=== PATIENT | male | born 1950 | race Caucasian/White ===

== ENCOUNTER 2024-02-10 18:57 | Observation (INO) | payer MEDICARE, BC ==
--- NOTE | 2024-02-10 19:01 | ERPHSYRPT ---
- History of Present Illness Time Seen by Provider: 02/10/24 19:01 Source: patient, EMS Exam Limitations: no limitations Physician History: This is a thin 73-year-old white male patient of Dr. Burrell who was brought into the emergency department by the paramedics because of shortness of breath, hypoxia of 88% on room air, and back pain. Patient states that today he just could not get his breath. He did take 2 Tylenol tablets as well as a "dope pill" at 1700 prior to arrival. Patient does not wear oxygen and does not take steroids. However, he is still having 5 out of 10 back pain. Patient has 4 L of oxygen via nasal cannula placed on him and his oxygen saturation levels on arrival is 97 to 98%. He does not have chest pain he denies abdominal pain. Patient received DuoNeb nebulizer treatment en route by the paramedics. He also has had a productive cough of yellowish-green sputum. Timing/Duration: today Activities at Onset: activity Severity of Dyspnea-Max: moderate Severity of Dyspnea-Current: mild (To moderate) Possible Cause: occasional episodes Modifying Factors: Improves With: activity, albuterol nebulizer (Improved), coughing, oxygen (Improved) Associated Symptoms: anxiety, cough, wheezing, productive cough (Yellowish-green sputum), No chest pain/discomfort Allergies/Adverse Reactions: No Known Drug Allergies Allergy (Unverified 02/10/24 19:16) Home Medications: Albuterol Sulfate [Albuterol Sulfate Hfa] 2 puffs IH Q8H PRN PRN 02/10/24 [History] Apixaban [Eliquis] 5 mg PO BID 02/10/24 [History] Budesonide/Formoterol Fumarate [Budesonide-Formoterol 160-4.5] 2 puffs IH BID 02/10/24 [History] Cimetidine [Acid Ambulance Assistant] 400 mg PO DAILY 02/10/24 [History] Methotrexate Sodium 2.5 mg [Trexall 2.5 mg] 2.5 mg PO DAILY 02/10/24 [History] Prednisone 10 mg [Deltasone 10 mg] 10 mg PO DAILY 02/10/24 [History] Prednisone 5 mg [Deltasone 5 mg] 5 mg PO DAILY 02/10/24 [History] Rosuvastatin Calcium 40 mg PO DAILY 02/10/24 [History] Spironolactone [Aldactone] 25 mg PO DAILY 02/10/24 [History] Travel Risk - International Travel Have you traveled outside of the country in past 3 weeks: No - Emerging Infectious Disease Are you exhibiting symptoms associated with any current EIDs: No Symptoms: Cough: New Onset - Review of Systems Constitutional: No Symptoms Eyes: No Symptoms Ears, Nose, & Throat: No Symptoms Respiratory: Cough, Dyspnea on Exertion ([place]) Cardiac: No Symptoms Abdominal/Gastrointestinal: No Symptoms Genitourinary Symptoms: No Symptoms Musculoskeletal: Back Pain (Acute exacerbation of chronic back pain.), No Fall, No Injury Skin: No Symptoms Neurological: No Symptoms Psychological: No Symptoms Endocrine: No Symptoms Hematologic/Lymphatic: No Symptoms Immunological/Allergic: No Symptoms All Other Systems: Reviewed and Negative - Past Medical History Pertinent Past Medical History: Yes - Past Surgical History Past Surgical History: Yes - Nursing Vital Signs Nursing Vital Signs: Initial Vital Signs Blood Pressure 126/87 02/10/24 19:00 O2 Sat by Pulse Oximetry 97 02/10/24 19:00 Pain Scale Pain Intensity 3 - Physical Exam General Appearance: no apparent distress, alert, anxiety, thin Eye Exam: PERRL/EOMI, eyes nml inspection Ears, Nose, Throat Exam: hearing grossly normal, normal ENT inspection, normal pharynx Neck Exam: normal inspection, non-tender, supple, full range of motion Respiratory Exam: airway intact, rhonchi (Mild bilateral), wheezing (Mild bilateral expiratory), No chest tenderness, No respiratory distress Cardiovascular/Chest Exam: normal heart sounds, regular rate/rhythm Abdominal/Gastrointestinal Exam: soft, normal bowel sounds, No tenderness Rectal Exam: not done Extremity Exam: non-tender, normal range of motion, normal inspection Neurologic Exam: alert, oriented x 3, cooperative, rate setter II-XII nml as tested, nml cerebellar function, nml station & gait, sensation nml Skin Exam: normal color, warm, dry Lymphatic Exam: No adenopathy SpO2 Interpretation: normal O2 Delivery: Room Air - Course Nursing assessment & vital signs reviewed: Yes EKG Interpreted by Me: RATE ([id number]), A-fib, NORMAL AXIS, NORMAL QRS, Other (Ventricular bigeminy. No obvious acute ischemic changes on today's twelve-lead EKG. There are no comparison twelve-lead EKGs.) Ordered Tests: Active Orders 24 hr Category Date Time Status EKG-ER Only STAT Care 02/10/24 19:39 Active IV Insertion STAT Care 02/10/24 19:39 Active Pulse Oximetry (ED) STAT Care 02/10/24 19:39 Active CHEST 1 VIEW (PORTABLE) Stat Exams 02/10/24 19:40 Taken BLOOD CULTURE Stat Lab 02/10/24 20:08 Received CBC W DIFF Stat Lab 02/10/24 19:00 Completed CMP Stat Lab 02/10/24 19:00 Completed CULTURE,SPUTUM Stat Lab 02/10/24 19:47 Ordered D-DIMER QUANTITATIVE Stat Lab 02/10/24 19:00 Completed Lactic Acid Stat Lab 02/10/24 19:55 Completed Lactic Acid Stat Lab 02/10/24 22:10 Received MAGNESIUM Stat Lab 02/10/24 19:00 Completed NT PRO BNPII Stat Lab 02/10/24 19:00 Completed TROPONIN Q4H Lab 02/10/24 19:00 Completed TROPONIN Q4H Lab 02/10/24 23:45 Ordered TROPONIN Q4H Lab 02/11/24 03:45 Ordered Medication Summary Generic Name Dose Route Start Last Admin Trade Name Freq PRN Reason Stop Dose Admin Ceftriaxone Sodium 1 gm in 100 mls @ 200 mls/hr 02/10/24 23:35 Rocephin 1 Gm / 100 Ml Nacl IV 02/11/24 00:04 STAT ONE Discontinued Medications Generic Name Dose Route Start Last Admin Trade Name Freq PRN Reason Stop Dose Admin Methylprednisolone Sodium 0 mg 02/10/24 19:41 02/10/24 19:59 Succinate 125 mg/ Sterile IV 02/10/24 19:42 125 mg Water 2 ml STAT ONE Administration Furosemide 40 mg 02/10/24 20:34 02/10/24 21:16 Furosemide 40 Mg/4 Ml Vial IV 02/10/24 20:35 40 mg STAT ONE Administration Furosemide Confirm 02/10/24 21:14 Furosemide 40 Mg/4 Ml Vial Administered 02/10/24 21:15 Dose 40 mg .ROUTE .STK-MED ONE Methylprednisolone Sodium Succinate Confirm 02/10/24 19:55 Methylprednis Sod Succ 125 Mg/2 Ml Vial Administered 02/10/24 19:56 Dose 125 mg .ROUTE .STK-MED ONE Morphine Sulfate 2 mg 02/10/24 19:41 02/10/24 19:58 Morphine Sulfate 2 Mg/Ml Inj IV 02/10/24 19:42 2 mg STAT ONE Administration Morphine Sulfate Confirm 02/10/24 19:55 Morphine Sulfate 2 Mg/Ml Inj Administered 02/10/24 19:56 Dose 2 mg .ROUTE .STK-MED ONE Morphine Sulfate 2 mg 02/10/24 21:52 02/10/24 22:02 Morphine Sulfate 2 Mg/Ml Inj IV 02/10/24 21:53 2 mg STAT ONE Administration Morphine Sulfate Confirm 02/10/24 22:01 Morphine Sulfate 2 Mg/Ml Inj Administered 02/10/24 22:02 Dose 2 mg .ROUTE .STK-MED ONE Ondansetron HCl 4 mg 02/10/24 19:41 02/10/24 19:58 Ondansetron Hcl 4 Mg/2 Ml Vial IV 02/10/24 19:42 4 mg STAT ONE Administration Ondansetron HCl Confirm 02/10/24 19:55 Ondansetron Hcl 4 Mg/2 Ml Vial Administered 02/10/24 19:56 Dose 4 mg .ROUTE .STK-MED ONE Sterile Water Confirm 02/10/24 19:55 Water For Injection,Sterile 10 Ml Vial Administered 02/10/24 19:56 Dose 10 ml IJ .STK-MED ONE Lab/Rad Data: Laboratory Result Diagrams 02/10/24 19:00 02/10/24 19:00 Laboratory Results 02/10/24 02/10/24 02/10/24 Range/Units 20:08 19:55 19:00 WBC (4.0-10.5) x10^3/uL RBC (4.1-5.6) x10^6/uL Hgb (12.5-18.0) g/dL Hct (42-50) % MCV (78-100) fL MCH (26-32) pg MCHC (32-36) g/dL RDW (11.5-14.0) % Plt Count (150-450) x10^3/uL MPV (7.5-11.0) fL Gran % (36.0-66.0) % Immature Gran % (Auto) (0.00-0.4) % Nucleat RBC Rel Count (0.00-0.1) % Eos # (Auto) (0-0.5) x10^3/uL Immature Gran # (Auto) (0.00-0.03) x10^3u/L Absolute Lymphs (auto) (1.0-4.6) x10^3/uL Absolute Monos (auto) (0.0-1.3) x10^3/uL Absolute Nucleated RBC (0.00-0.01) x10^3u/L Lymphocytes % (24.0-44.0) % Monocytes % (0.0-12.0) % Eosinophils % (0.00-5.0) % Basophils % (0.0-0.4) % Absolute Granulocytes (1.4-6.9) x10^3/uL Basophils # (0-0.4) x10^3/uL D-Dimer (0.0-0.50) mg/L Sodium (135-145) mmol/L Potassium (3.5-5.1) mmol/L Chloride (98-107) mmol/L Carbon Dioxide (22-30) mmol/L Anion Gap (5-15) MEQ/L BUN (9-20) mg/dL Creatinine (0.66-1.25) mg/dL Estimated GFR ML/MIN Glucose (74-106) mg/dL Lactic Acid 2.1 H (0.4-2.0) Calcium (8.4-10.2) mg/dL Magnesium (1.6-2.3) mg/dL Total Bilirubin (0.2-1.3) mg/dL AST (17-59) U/L ALT (0-50) U/L Alkaline Phosphatase (38-126) U/L Troponin I < 0.012 (0.000-0.034) ng/mL NT-Pro-B Natriuret Pep (<300) pg/mL Serum Total Protein (6.3-8.2) g/dL Albumin (3.5-5.0) g/dL Influenza Type A Ag NEGATIVE (NEGATIVE) Influenza Type B Ag NEGATIVE (NEGATIVE) RSV (PCR) NEGATIVE (NEGATIVE) SARS-CoV-2 (PCR) NEGATIVE (NEGATIVE) Slides for Path Review 02/10/24 02/10/24 02/10/24 Range/Units 19:00 19:00 19:00 WBC 13.5 H (4.0-10.5) x10^3/uL RBC 4.17 (4.1-5.6) x10^6/uL Hgb 11.5 L (12.5-18.0) g/dL Hct 38.3 L (42-50) % MCV 91.8 (78-100) fL MCH 27.6 (26-32) pg MCHC 30.0 L (32-36) g/dL RDW 18.8 H (11.5-14.0) % Plt Count 327 (150-450) x10^3/uL MPV 9.2 (7.5-11.0) fL Gran % 90.8 H (36.0-66.0) % Immature Gran % (Auto) 0.7 H (0.00-0.4) % Nucleat RBC Rel Count 0.0 (0.00-0.1) % Eos # (Auto) 0.01 (0-0.5) x10^3/uL Immature Gran # (Auto) 0.09 H (0.00-0.03) x10^3u/L Absolute Lymphs (auto) 0.39 L (1.0-4.6) x10^3/uL Absolute Monos (auto) 0.70 (0.0-1.3) x10^3/uL Absolute Nucleated RBC 0.00 (0.00-0.01) x10^3u/L Lymphocytes % 2.9 L (24.0-44.0) % Monocytes % 5.2 (0.0-12.0) % Eosinophils % 0.1 (0.00-5.0) % Basophils % 0.3 (0.0-0.4) % Absolute Granulocytes 12.27 H (1.4-6.9) x10^3/uL Basophils # 0.04 (0-0.4) x10^3/uL D-Dimer 0.64 H* (0.0-0.50) mg/L Sodium 135 (135-145) mmol/L Potassium 5.3 H (3.5-5.1) mmol/L Chloride 98 (98-107) mmol/L Carbon Dioxide 27 (22-30) mmol/L Anion Gap 15.0 (5-15) MEQ/L BUN 25 H (9-20) mg/dL Creatinine 0.95 (0.66-1.25) mg/dL Estimated GFR 83.5 ML/MIN Glucose 112 H (74-106) mg/dL Lactic Acid (0.4-2.0) Calcium 9.9 (8.4-10.2) mg/dL Magnesium 2.0 (1.6-2.3) mg/dL Total Bilirubin 0.50 (0.2-1.3) mg/dL AST 30 (17-59) U/L ALT 22 (0-50) U/L Alkaline Phosphatase 88 (38-126) U/L Troponin I (0.000-0.034) ng/mL NT-Pro-B Natriuret Pep 2530 (<300) pg/mL Serum Total Protein 7.5 (6.3-8.2) g/dL Albumin 3.9 (3.5-5.0) g/dL Influenza Type A Ag (NEGATIVE) Influenza Type B Ag (NEGATIVE) RSV (PCR) (NEGATIVE) SARS-CoV-2 (PCR) (NEGATIVE) Slides for Path Review YES - Progress Progress: improved, re-examined Air Movement: fair Progress Note: 02/10/24 19:50 This patient's medical issue is 1 of at least moderate complexity. The level complexity and the workup performed is based on review of the patient's past medical history, review of the patient's medication list, review of patient drug allergy list, history present illness and physical findings on examination. The workup in this patient includes placement of intravenous line, evaluation by respiratory therapy, infusion of Solu-Medrol, chest x-ray, D-dimer level, troponin level, BNP level, twelve-lead EKG. We will also order viral swabs 02/10/24 20:54 I interpreted the patient's laboratory data that is returned thus far. Patient has an elevated BNP level. His troponin level is within normal limits. I am awaiting the D-dimer level. The chest x-ray was interpreted by me. The patient has left pleural effusion. There is also evidence of bibasilar fluid versus atelectasis versus infiltrate. 02/10/24 23:[address] Guillen, the telehospitalist on-call. I reviewed the patient history, presenting complaint, physical findings on examination and the workup results including chest x-ray, twelve-lead EKG and laboratory data results. He agrees with placing this patient in observation. The patient will require intravenous Rocephin and intravenous azithromycin, Solu-Medrol dosing and diuresis with Lasix. Patient is refusing the CT scan of the chest. He will sign refusal of care form. Dr. Guillen accepts the patient for placement in the hospital. Blood Culture(s) Obtained: Yes Antibiotics given: Yes Counseled pt/family regarding: lab results, diagnosis, rad results Medical Desision Making - Diagnostic Testing Diagnostic test were ordered, analyzed, and reviewed by me: Yes Radiological Interpretation: Interpreted by me - Risk of complications The pt has a high risk of morbidity or mortality based on: Decision regarding hospitilization or escalation of hosp level of care - Departure Departure Disposition: Observation Clinical Impression: Upper respiratory infection, CHF exacerbation, COPD exacerbation, Hypoxia Condition: Fair Critical Care Time: Yes Critical Care Time(excluding separately billable procedures): Critical 30-74 mins (40 minutes) Referrals: AJ BURRELL [Primary Care Provider] - Follow up/PCP as directed Instructions: Heart Failure, Chronic Obstructive Pulmonary Disease
[2024-02-10 19:47] LABS: Absolute Neutrophil Ct (ANC) 12.27 x10^3/uL (1.4-6.9); BASOPHIL % 0.3 % (0.0-0.4); Basophil (Absolute #) 0.04 x10^3/uL (0-0.4); Eosinophil % 0.1 % (0.00-5.0); Eosinophil (Absolute #) 0.01 x10^3/uL (0-0.5); Hematocrit 38.3 % (42-50); Hemoglobin 11.5 g/dL (12.5-18.0); IMMATURE GRAN # 0.09 x10^3u/L (0.00-0.03); IMMATURE GRAN % 0.7 % (0.00-0.4); Lymphocyte (Absolute #) 0.39 x10^3/uL (1.0-4.6); Lymphocytes % 2.9 % (24.0-44.0); Mean Cell Volume 91.8 fL (78-100); Mean Corpuscular Hemoglobin 27.6 pg (26-32); Mean Platelet Volume 9.2 fL (7.5-11.0); Monocytes % 5.2 % (0.0-12.0); Neutrophil % 90.8 % (36.0-66.0); Platelet Count 327 x10^3/uL (150-450); Red Blood Count 4.17 x10^6/uL (4.1-5.6); Red Cell Distribution Width 18.8 % (11.5-14.0); White Blood Count 13.5 x10^3/uL (4.0-10.5)
[2024-02-10 19:55] LABS: ALBUMIN 3.9 g/dL (3.5-5.0); BILIRUBIN,TOTAL 0.5 mg/dL (0.2-1.3); Calcium 9.9 mg/dL (8.4-10.2); Creatinine 1 0.95 mg/dL (0.66-1.25); EST GLOMERULAR FILTRATION RATE 83.5 ML/MIN; Potassium 5.3 mmol/L (3.5-5.1); Total Protein 7.5 g/dL (6.3-8.2)
[2024-02-10] MEDS ORDERED: solu-MEDROL ONE (19:55)
[2024-02-10] MEDS ORDERED: Zofran 4 MG/2 ML VIAL ONE (19:55)
[2024-02-10] MEDS ORDERED: Sterile H2O 10 ml IJ ONE (19:55)
[2024-02-10] MEDS ORDERED: MORPHINE SULFATE 2 MG INJ ONE ×2 (19:55→22:01)
[2024-02-10] MEDS: MORPHINE SULFATE 2 MG INJ IV ONE ×2 (19:58→22:02)
[2024-02-10] MEDS: Zofran 4 MG/2 ML VIAL IV ONE (19:58)
[2024-02-10] MEDS: solu-MEDROL 125 MG, Sterile H2O 10 ml 2 ML IV ONE (19:59)
[2024-02-10 20:50] LABS: Slide Review 1 YES
[2024-02-10 21:01] LABS: INFLUENZA A NEGATIVE (NEGATIVE); INFLUENZA B NEGATIVE (NEGATIVE); RESPIRATORY SYNCTIAL VIRUS NEGATIVE (NEGATIVE); SARS-CoV-2 Xpert Express NEGATIVE (NEGATIVE)
[2024-02-10] MEDS ORDERED: Lasix 40 MG/4 ML ONE (21:14)
[2024-02-10] MEDS: Lasix 40 MG/4 ML IV ONE (21:16)
[2024-02-10] MEDS ORDERED: ROCEPHIN 1 GM / 100 ML NaCl 1 GM/100 ML IVPB IV ONE (23:41)
[2024-02-10] MEDS: ROCEPHIN 1 GM / 100 ML NaCl 1 GM/100 ML IVPB IV ONE (23:43)
[2024-02-10] MEDS ORDERED: Zofran 4 MG/2 ML VIAL IV PRN (23:47)
[2024-02-11] MEDS ORDERED: VENTOLIN COMMON CANISTER IH PRN (00:04)
[2024-02-11] MEDS ORDERED: TYLENOL 325 MG PO PRN (00:12)
--- NOTE | 2024-02-11 00:19 | PCM.HP ---
History of Present Illness - Chief Complaint Chief Complaint: SOB History of Present Illness: is a 73 year old male with hx of GERD, AFib, CHF, COPD here with c/o SOB and productive cough started today. He is not normally on O2, and his O2 sat on RA was 88%, placed on 4Ls NC O2, and O2 sat has since improved. Cough is productive with yellow sputum. Denies fever, chills, chest pain, nausea, vomiting, diarrhea. In ER, CXR shows effusions. BNP 2300. Concern for both COPD exacerbation, PNA and CHF. He is on Eliquis already for AFib. DDimer elevated but pt refused to go to CT due to his back pain. His other complaint is back pain, but this is a chronic issue. I saw via him telemedicine. He is resting on NC O2, looks comfortable not, not septic on my exam - Review of Systems Constitutional: No Symptoms Eyes: No Symptoms Ears, Nose, & Throat: No Symptoms Respiratory: Cough, Short Of Breath Cardiac: No Symptoms Abdominal/Gastrointestinal: No Symptoms Genitourinary Symptoms: No Symptoms Musculoskeletal: Back Pain Skin: No Symptoms Neurological: No Symptoms Psychological: No Symptoms Endocrine: No Symptoms Hematologic/Lymphatic: No Symptoms Immunological/Allergic: No Symptoms Medications & Allergies Home Medications: Home Medication List Albuterol Sulfate [Albuterol Sulfate Hfa] 2 puffs IH Q8H PRN PRN 02/10/24 [History Confirmed 02/11/24] Apixaban [Eliquis] 5 mg PO BID 02/10/24 [History Confirmed 02/10/24] Budesonide/Formoterol Fumarate [Budesonide-Formoterol 160-4.5] 2 puffs IH BID 02/10/24 [History Confirmed 02/10/24] Cimetidine [Acid Translator Interpreter] 400 mg PO DAILY 02/10/24 [History Confirmed 02/10/24] Methotrexate Sodium 2.5 mg [Trexall 2.5 mg] 2.5 mg PO DAILY 02/10/24 [History Confirmed 02/11/24] Rosuvastatin Calcium 40 mg PO DAILY 02/10/24 [History Confirmed 02/10/24] Spironolactone [Aldactone] 25 mg PO DAILY 02/10/24 [History Confirmed 02/10/24] Allergies/Adverse Reactions: Allergies Allergy/AdvReac Type Severity Reaction Status Date / Time No Known Drug Allergies Allergy Unverified 02/10/24 19:16 - Past Medical History Past Medical History: Yes Neurological History: No Pertinent History Cardiac History: Arrhythmia, High Cholesterol Respiratory History: COPD - Past Surgical History Past Surgical History: Yes Neuro Surgical History: No Pertinent History Cardiac History: Cardiac Catheterization, Cardiac Stent GI Surgical History: No Pertinent History Genitourinary Surgical Hx: No Pertinent History Musculskeletal Surgical Hx: No Pertinent History Male Surgical History: No Pertinent History - Social History Smoking Status: Former smoker Exposure to second hand smoke: No Alcohol: None Drug Use: none - Physical Exam Vital Signs: Vital Signs - 24 hr Pulse Resp BP Pulse Ox 02/11/24 00:00 109 H 20 113/84 98 02/10/24 23:30 98 H 24 113/89 98 02/10/24 23:20 105 H 22 112/81 97 02/10/24 22:30 142 H 23 108/85 97 02/10/24 22:00 104 H 23 132/100 96 02/10/24 21:30 104 H 22 130/100 97 02/10/24 21:00 99 H 22 126/103 97 02/10/24 20:30 105 H 23 138/92 02/10/24 20:00 113 H 22 134/99 97 02/10/24 19:39 97 02/10/24 19:30 102 H 22 118/95 97 02/10/24 19:21 18 97 02/10/24 19:00 126/87 97 General Appearance: mild distress, alert Neurologic Exam: alert, oriented x 3, cooperative, normal mood/affect Eye Exam: PERRL/EOMI Ears, Nose, Throat Exam: normal ENT inspection, moist mucous membranes Neck Exam: normal inspection, supple, full range of motion Respiratory Exam: diminished breath sounds Cardiovascular Exam: normal heart sounds, irregular Gastrointestinal/Abdomen Exam: soft Rectal Exam: deferred Back Exam: normal inspection Extremity Exam: normal inspection Skin Exam: normal color Results - Labs Lab/Micro Results: Lab Results-Last 24 Hours 02/10/24 02/10/24 02/10/24 Range/Units 19:00 19:00 19:00 WBC 13.5 H (4.0-10.5) x10^3/uL RBC 4.17 (4.1-5.6) x10^6/uL Hgb 11.5 L (12.5-18.0) g/dL Hct 38.3 L (42-50) % MCV 91.8 (78-100) fL MCH 27.6 (26-32) pg MCHC 30.0 L (32-36) g/dL RDW 18.8 H (11.5-14.0) % Plt Count 327 (150-450) x10^3/uL MPV 9.2 (7.5-11.0) fL Gran % 90.8 H (36.0-66.0) % Immature Gran % (Auto) 0.7 H (0.00-0.4) % Nucleat RBC Rel Count 0.0 (0.00-0.1) % Eos # (Auto) 0.01 (0-0.5) x10^3/uL Immature Gran # (Auto) 0.09 H (0.00-0.03) x10^3u/L Absolute Lymphs (auto) 0.39 L (1.0-4.6) x10^3/uL Absolute Monos (auto) 0.70 (0.0-1.3) x10^3/uL Absolute Nucleated RBC 0.00 (0.00-0.01) x10^3u/L Lymphocytes % 2.9 L (24.0-44.0) % Monocytes % 5.2 (0.0-12.0) % Eosinophils % 0.1 (0.00-5.0) % Basophils % 0.3 (0.0-0.4) % Absolute Granulocytes 12.27 H (1.4-6.9) x10^3/uL Basophils # 0.04 (0-0.4) x10^3/uL D-Dimer 0.64 H* (0.0-0.50) mg/L Sodium 135 (135-145) mmol/L Potassium 5.3 H (3.5-5.1) mmol/L Chloride 98 (98-107) mmol/L Carbon Dioxide 27 (22-30) mmol/L Anion Gap 15.0 (5-15) MEQ/L BUN 25 H (9-20) mg/dL Creatinine 0.95 (0.66-1.25) mg/dL Estimated GFR 83.5 ML/MIN Glucose 112 H (74-106) mg/dL Lactic Acid (0.4-2.0) Calcium 9.9 (8.4-10.2) mg/dL Magnesium 2.0 (1.6-2.3) mg/dL Total Bilirubin 0.50 (0.2-1.3) mg/dL AST 30 (17-59) U/L ALT 22 (0-50) U/L Alkaline Phosphatase 88 (38-126) U/L Troponin I (0.000-0.034) ng/mL NT-Pro-B Natriuret Pep 2530 (<300) pg/mL Serum Total Protein 7.5 (6.3-8.2) g/dL Albumin 3.9 (3.5-5.0) g/dL Influenza Type A Ag (NEGATIVE) Influenza Type B Ag (NEGATIVE) RSV (PCR) (NEGATIVE) SARS-CoV-2 (PCR) (NEGATIVE) Slides for Path Review YES 02/10/24 02/10/24 02/10/24 Range/Units 19:00 19:55 20:08 WBC (4.0-10.5) x10^3/uL RBC (4.1-5.6) x10^6/uL Hgb (12.5-18.0) g/dL Hct (42-50) % MCV (78-100) fL MCH (26-32) pg MCHC (32-36) g/dL RDW (11.5-14.0) % Plt Count (150-450) x10^3/uL MPV (7.5-11.0) fL Gran % (36.0-66.0) % Immature Gran % (Auto) (0.00-0.4) % Nucleat RBC Rel Count (0.00-0.1) % Eos # (Auto) (0-0.5) x10^3/uL Immature Gran # (Auto) (0.00-0.03) x10^3u/L Absolute Lymphs (auto) (1.0-4.6) x10^3/uL Absolute Monos (auto) (0.0-1.3) x10^3/uL Absolute Nucleated RBC (0.00-0.01) x10^3u/L Lymphocytes % (24.0-44.0) % Monocytes % (0.0-12.0) % Eosinophils % (0.00-5.0) % Basophils % (0.0-0.4) % Absolute Granulocytes (1.4-6.9) x10^3/uL Basophils # (0-0.4) x10^3/uL D-Dimer (0.0-0.50) mg/L Sodium (135-145) mmol/L Potassium (3.5-5.1) mmol/L Chloride (98-107) mmol/L Carbon Dioxide (22-30) mmol/L Anion Gap (5-15) MEQ/L BUN (9-20) mg/dL Creatinine (0.66-1.25) mg/dL Estimated GFR ML/MIN Glucose (74-106) mg/dL Lactic Acid 2.1 H (0.4-2.0) Calcium (8.4-10.2) mg/dL Magnesium (1.6-2.3) mg/dL Total Bilirubin (0.2-1.3) mg/dL AST (17-59) U/L ALT (0-50) U/L Alkaline Phosphatase (38-126) U/L Troponin I < 0.012 (0.000-0.034) ng/mL NT-Pro-B Natriuret Pep (<300) pg/mL Serum Total Protein (6.3-8.2) g/dL Albumin (3.5-5.0) g/dL Influenza Type A Ag NEGATIVE (NEGATIVE) Influenza Type B Ag NEGATIVE (NEGATIVE) RSV (PCR) NEGATIVE (NEGATIVE) SARS-CoV-2 (PCR) NEGATIVE (NEGATIVE) Slides for Path Review - Radiology Impressions Radiology Exams & Impressions: Radiology Procedures Category Date Time Status CHEST 1 VIEW (PORTABLE) Stat Exams 02/10/24 19:40 Taken - Other Procedures and Tests Respiratory Therapy 02/11/24 00:05 Oxygen Nasal Cannula 2 lpm 02/11/24 00:12 EKG REPEAT IN AM Oxygen Nasal Cannula 2 lpm Respiratory Therapy Consult ONCE Assessment/Plan (1) Hypoxia Current Visit: Yes Status: Acute Assessment & Plan: Acute respiratory failure with hypoxia: On 4Ls NC O2. COPD and CHF exacerbation. Treating both, monitor O2 sat, wean off O2 when able. Code(s): R09.02 - HYPOXEMIA (2) COPD exacerbation Current Visit: Yes Status: Acute Assessment & Plan: Solu-medrol 80mg IV q8, rocephin/azithromycin, updrafts prn. D-Dimer elevated, but refused CTA. already on Eliquis. Sputum and blood cultures ordered He quit smoking Aug 2020 Code(s): J44.1 - CHRONIC OBSTRUCTIVE PULMONARY DISEASE W (ACUTE) EXACERBATION (3) CHF exacerbation Current Visit: Yes Status: Acute Assessment & Plan: Pleural effusion seen on CXR. BNP 2300. Lasix 20mg IV BID, and monitor BNP and clinical progress. Cr is normal. BUN 20s. Code(s): I50.9 - HEART FAILURE, UNSPECIFIED (4) Hyperkalemia Current Visit: Yes Status: Acute Assessment & Plan: K is mildly elevated at 5.3. Holding spironolactone. Lasix should help lower K. Repeat lab in AM Code(s): E87.5 - HYPERKALEMIA (5) Leukocytosis Current Visit: Yes Status: Acute Assessment & Plan: WBC 13.5. No fever. Productive cough. Treating with Rocephin/Azithromycin for possible CAP. Flu and covid negative Code(s): D72.829 - ELEVATED WHITE BLOOD CELL COUNT, UNSPECIFIED (6) Atrial fibrillation Current Visit: Yes Status: Acute Assessment & Plan: HR is < 120, he is on Eliquis Code(s): I48.91 - UNSPECIFIED ATRIAL FIBRILLATION Telemedicine Encounter - Telemedicine Encounter Telemedicine Encounter: The entirety of this encounter was performed via Telemedicine" Pt gave me verbal consent to have this telemedicine visit I believe he needs inpt admission, will likely be here at least 48 hrs. Eliquis for DVT prophylaxis as well. He is a FULL code
[2024-02-11] MEDS: ROCEPHIN 1 GM / 100 ML NaCl 1 GM/100 ML IVPB IV SCH ×3 (01:28→21:05)
[2024-02-11] MEDS: Lasix 40 MG/4 ML IV SCH (01:29)
[2024-02-11] MEDS: Sodium Chloride 0.9% 1000 ML 1,000 ML IV SCH (01:32)
[2024-02-11] MEDS: MORPHINE SULFATE 2 MG INJ IV PRN (03:52)
[2024-02-11] MEDS: VENTOLIN COMMON CANISTER IH SCH (05:07)
[2024-02-11] MEDS: Advair Hfa 115/21 Common canister IH SCH (05:08)
[2024-02-11 05:11] LABS: A-aADO2 56; ABG HEMOGLOBIN 11.5; ABG POTASSIUM 5.3 (3.5-5.1); ARTERIAL BLOOD GAS BASE EXCESS 2.7 (-2.0-2.0); ARTERIAL BLOOD GAS FIO2 28 %; ARTERIAL BLOOD GAS PCO2 35 mmHg (35-45); ARTERIAL BLOOD GAS PO2 100 mmHg (75-100); ARTERIAL BLOOD GAS pH 7.48 (7.35-7.45); CARBOXYHEMOGLOBIN 1.4 % THgb (0.0-6.9); HCO3- 26.1 (22-28); HGB O2 SAT 96.5 g/dF (94-100); Methhemoglobin 1.1 % (1.4-1.5); paO2 pAO1 0.64
[2024-02-11 05:39] LABS: Hematocrit 36.6 % (42-50); Hemoglobin 11.1 g/dL (12.5-18.0); Mean Cell Volume 90.6 fL (78-100); Mean Corpuscular Hemoglobin 27.5 pg (26-32); Mean Corpuscular Hgb Concent. 30.3 g/dL (32-36); Mean Platelet Volume 9.3 fL (7.5-11.0); Platelet Count 292 x10^3/uL (150-450); Red Blood Count 4.04 x10^6/uL (4.1-5.6); Red Cell Distribution Width 18.6 % (11.5-14.0)
[2024-02-11] MEDS ORDERED: solu-MEDROL ONE (05:49)
[2024-02-11] MEDS ORDERED: Sterile H2O 10 ml IJ ONE (05:49)
[2024-02-11] MEDS: solu-MEDROL 80 MG, Sterile H2O 10 ml 1 ML IV SCH (06:03)
[2024-02-11 06:24] LABS: ALBUMIN 3.7 g/dL (3.5-5.0); ANION GAP 18.8 MEQ/L (5-15); BILIRUBIN,TOTAL 0.4 mg/dL (0.2-1.3); Calcium 9.4 mg/dL (8.4-10.2); Creatinine 1 0.95 mg/dL (0.66-1.25); EST GLOMERULAR FILTRATION RATE 83.5 ML/MIN; Potassium 5.2 mmol/L (3.5-5.1); Total Protein 7.1 g/dL (6.3-8.2)
--- NOTE | 2024-02-11 08:25 | XRAY ---
Indication: Short of breath. Comparison: January 24, 2024 Portable chest demonstrates new mild bibasilar infiltrates/atelectasis and small left effusion. Remaining heart and upper lungs unremarkable.
[2024-02-11] MEDS ORDERED: CIMETIDINE 200 MG PO SCH (10:00)
[2024-02-11] MEDS ORDERED: NON-FORMULARY ITEM (Budesonide/Formoterol Fumarate [Budesonide-Formoterol 160-4.5] 10.2 GM IH SCH (10:00)
[2024-02-11] MEDS ORDERED: NON-FORMULARY ITEM (Rosuvastatin Calcium [Rosuvastatin Calcium] 40 MG Tablet) PO SCH (10:00)
[2024-02-11] MEDS ORDERED: Zithromax 500 MG/ 250 ML NaCl Premix 500 MG/250 ML IVPB IV SCH (10:00)
[2024-02-11] MEDS ORDERED: NON-FORMULARY ITEM (Apixaban [Eliquis] 5 MG Tablet) PO SCH (10:00)
[2024-02-11] MEDS: ELIQUIS 2.5 MG TABLET PO SCH (10:18)
[2024-02-11] MEDS: Lasix 20 MG/2 ML IV SCH (10:18)
[2024-02-11] MEDS: Pepcid 20 MG PO SCH (10:18)
[2024-02-11] MEDS: Lopressor 25MG Tab PO SCH (10:19)
[2024-02-11] MEDS: TYLENOL 325 MG PO PRN (10:27)
[2024-02-11] MEDS: Mucinex 600MG ER Tabs PO SCH (10:28)
--- NOTE | 2024-02-11 11:18 | PCM.NOTE ---
Mr. Dasilva is a 43 yo male with pmhx of GERD, AFib, CHF, COPD, and HLD admitted with CHF/COPD exacerbation and pneumonia. CXR chest demonstrates new mild bibasilar infiltrates/atelectasis and small left effusion. Current treatment with Soulmedrol 40mg IV Q8H, rocephin/azithromycin, as well as Lasix IV. Patient does have a h/o AFIB which was noted on EKG. HR on tele has been in the 130's - 160's at times. He is on anticoagulation but no BB. We will start Metoprolol 12.5mg bid. Labs are improving. Patient endorses shortness of breath somewhat better. Ddimer was elevated on arrival. Patient still refusing CT at this time.
[2024-02-11] MEDS: solu-MEDROL 40 MG, Sterile H2O 10 ml 1 ML IV SCH (13:27)
[2024-02-11] MEDS: ZOCOR 20MG PO SCH (21:06)
[2024-02-11] MEDS: Zithromax 500 MG/ 250 ML NaCl Premix 500 MG/250 ML IVPB IV SCH (22:15)
[2024-02-12 05:55] LABS: BASOPHIL % 0.1 % (0.0-0.4); Basophil (Absolute #) 0.02 x10^3/uL (0-0.4); Eosinophil % 0.1 % (0.00-5.0); Eosinophil (Absolute #) 0.02 x10^3/uL (0-0.5); Hematocrit 32.9 % (42-50); Hemoglobin 10.1 g/dL (12.5-18.0); IMMATURE GRAN # 0.14 x10^3u/L (0.00-0.03); IMMATURE GRAN % 0.8 % (0.00-0.4); Lymphocyte (Absolute #) 0.21 x10^3/uL (1.0-4.6); Lymphocytes % 1.2 % (24.0-44.0); Mean Cell Volume 90.6 fL (78-100); Mean Corpuscular Hemoglobin 27.8 pg (26-32); Mean Corpuscular Hgb Concent. 30.7 g/dL (32-36); Mean Platelet Volume 9.3 fL (7.5-11.0); Monocyte (Absolute #) 0.26 x10^3/uL (0.0-1.3); Monocytes % 1.5 % (0.0-12.0); Neutrophil % 96.3 % (36.0-66.0); Platelet Count 339 x10^3/uL (150-450); Red Blood Count 3.63 x10^6/uL (4.1-5.6); Red Cell Distribution Width 18.5 % (11.5-14.0); White Blood Count 17.8 x10^3/uL (4.0-10.5)
[2024-02-12 06:38] LABS: ALBUMIN 3.4 g/dL (3.5-5.0); ANION GAP 14.1 MEQ/L (5-15); BILIRUBIN,TOTAL 0.2 mg/dL (0.2-1.3); Creatinine 1 0.87 mg/dL (0.66-1.25); Potassium 4.6 mmol/L (3.5-5.1); Total Protein 6.3 g/dL (6.3-8.2)
[2024-02-12 07:10] LABS: Slide Review 1 YES
--- NOTE | 2024-02-12 08:30 | PCM.NOTE ---
Date and Time: 02/12/24821 Subjective Assessment: is a 73 year old male with hx of GERD, AFib, CHF, COPD here with c/o SOB and productive cough started today. He is not normally on O2, and his O2 sat on RA was 88%, placed on 4Ls NC O2, and O2 sat has since improved. Cough is productive with yellow sputum. Denies fever, chills, chest pain, nausea, vomiting, diarrhea. In ER, CXR shows effusions. BNP 2300. Concern for both COPD exacerbation, PNA and CHF. He is on Eliquis already for AFib. DDimer elevated but pt refused to go to CT due to his back pain. His other complaint is back pain, but this is a chronic issue. 02/11: Overnight events noted of AMS. RN reports she found patient standing staring at his IV pump, with his tele pulled off, O2 off and IV pulled out. Patient was A&O x 0. Patient A&O x 4 during this interview. States he has had similar events of AMS with hallucinations prior. Endorses continued dyspnea. Requiring 3L oxygen currently. No wheezing on auscultation today. Concern steroids may be contributing to delirium. Patient is worried about the cost of imaging and reluctant to have done. DDimer was mildly elevated on arrival. Patient is already on eliquis for AFIB. Will hold CT for now. <SANTHOSH ALBA - Last Filed: 02/12/24 11:12> Date and Time: 02/12/24 180 <NIKKI CORDERO - Last Filed: 02/12/24 18:08> - Review of Systems Constitutional: No Symptoms Eyes: No Symptoms Ears, Nose, & Throat: No Symptoms Respiratory: Short Of Breath Cardiac: No Symptoms Abdominal/Gastrointestinal: No Symptoms Genitourinary Symptoms: No Symptoms Musculoskeletal: Joint Pain (back chronic) Skin: No Symptoms Neurological: No Symptoms Psychological: Hallucinations (patient A&O x 4 during interview) Endocrine: No Symptoms Hematologic/Lymphatic: No Symptoms Immunological/Allergic: No Symptoms <SANTHOSH ALBA - Last Filed: 02/12/24 11:12> Objective Exam General Appearance: no apparent distress Neurologic Exam: alert, oriented x 3, cooperative Skin Exam: normal color Eye Exam: PERRL Ears, Nose, Throat Exam: normal ENT inspection Neck Exam: normal inspection Respiratory Exam: diminished breath sounds, crackles/rales Cardiovascular Exam: regular rate/rhythm, normal heart sounds Gastrointestinal/Abdomen Exam: soft, normal bowel sounds Extremity Exam: normal inspection Back Exam: normal inspection Male Genitalia Exam: deferred Rectal Exam: deferred <ASNTHOSH ALBA - Last Filed: 02/12/24 11:12> Objective Data Vital Signs: Vital Signs - 24 hr Temp Pulse Resp BP Pulse Ox 02/12/24 07:32 96.7 F 95 H 17 108/65 98 02/12/24 03:58 97.7 F 101 H 19 109/60 100 02/11/24 23:27 96.9 F 83 22 121/71 98 02/11/24 20:00 96.7 F 100 H 28 H 125/83 98 02/11/24 19:26 101 H 24 95 02/11/24 16:00 97.1 F 95 H 20 110/64 94 L 02/11/24 12:00 97.1 F 97 H 20 123/68 96 Pain Assessment - Last Documented Pain Intensity 4 Pain Scale Used 0-10 Pain Scale Intake and Output: Intake & Output 02/09/24 02/10/24 02/11/24 02/12/24 11:59 11:59 11:59 11:59 Intake Total 739 1873 Output Total 400 900 Balance 339 973 Weight 68 kg Lab Results: Lab Results-Last 24 Hours 02/11/24 02/12/24 02/12/24 Range/Units 05:37 05:36 05:36 WBC 17.8 H (4.0-10.5) x10^3/uL RBC 3.63 L (4.1-5.6) x10^6/uL Hgb 10.1 L (12.5-18.0) g/dL Hct 32.9 L (42-50) % MCV 90.6 (78-100) fL MCH 27.8 (26-32) pg MCHC 30.7 L (32-36) g/dL RDW 18.5 H (11.5-14.0) % Plt Count 339 (150-450) x10^3/uL MPV 9.3 (7.5-11.0) fL Gran % 96.3 H (36.0-66.0) % Immature Gran % (Auto) 0.8 H (0.00-0.4) % Nucleat RBC Rel Count 0.0 (0.00-0.1) % Eos # (Auto) 0.02 (0-0.5) x10^3/uL Immature Gran # (Auto) 0.14 H (0.00-0.03) x10^3u/L Absolute Lymphs (auto) 0.21 L (1.0-4.6) x10^3/uL Absolute Monos (auto) 0.26 (0.0-1.3) x10^3/uL Absolute Nucleated RBC 0.00 (0.00-0.01) x10^3u/L Lymphocytes % 1.2 L (24.0-44.0) % Monocytes % 1.5 (0.0-12.0) % Eosinophils % 0.1 (0.00-5.0) % Basophils % 0.1 (0.0-0.4) % Absolute Granulocytes 17.10 H (1.4-6.9) x10^3/uL Basophils # 0.02 (0-0.4) x10^3/uL Sodium 135 (135-145) mmol/L Potassium 4.6 (3.5-5.1) mmol/L Chloride 99 (98-107) mmol/L Carbon Dioxide 27 (22-30) mmol/L Anion Gap 14.1 (5-15) MEQ/L BUN 39 H (9-20) mg/dL Creatinine 0.87 (0.66-1.25) mg/dL Estimated GFR 90.0 ML/MIN Glucose 160 H (74-106) mg/dL Calcium 9.0 (8.4-10.2) mg/dL Total Bilirubin 0.20 (0.2-1.3) mg/dL AST 31 (17-59) U/L ALT 23 (0-50) U/L Alkaline Phosphatase 74 (38-126) U/L NT-Pro-B Natriuret Pep 2220 (<300) pg/mL Serum Total Protein 6.3 (6.3-8.2) g/dL Albumin 3.4 L (3.5-5.0) g/dL Slides for Path Review YES Radiology Exams: Radiology Procedures Category Date Time Status CHEST 1 VIEW (PORTABLE) Stat Exams 02/10/24 19:40 Completed <SANTHOSH ALBA - Last Filed: 02/12/24 11:12> Vital Signs: Vital Signs - 24 hr Temp Pulse Resp BP Pulse Ox 02/12/24 16:00 96.8 F 106 H 18 108/64 97 02/12/24 12:00 96.7 F 76 17 104/57 97 02/12/24 09:15 112 H 24 95 02/12/24 07:32 96.7 F 95 H 17 108/65 98 02/12/24 03:58 97.7 F 101 H 19 109/60 100 02/11/24 23:27 96.9 F 83 22 121/71 98 02/11/24 20:00 96.7 F 100 H 28 H 125/83 98 02/11/24 19:26 101 H 24 95 Pain Assessment - Last Documented Pain Intensity 4 Pain Scale Used 0-10 Pain Scale Intake and Output: Intake & Output 02/10/24 02/11/24 02/12/24 02/13/24 11:59 11:59 11:59 11:59 Intake Total 739 1993 240 Output Total 400 900 Balance 339 1093 240 Weight 68 kg Lab Results: Lab Results-Last 24 Hours 02/11/24 02/12/24 02/12/24 Range/Units 05:00 05:36 05:36 WBC 17.8 H (4.0-10.5) x10^3/uL RBC 3.63 L (4.1-5.6) x10^6/uL Hgb 10.1 L (12.5-18.0) g/dL Hct 32.9 L (42-50) % MCV 90.6 (78-100) fL MCH 27.8 (26-32) pg MCHC 30.7 L (32-36) g/dL RDW 18.5 H (11.5-14.0) % Plt Count 339 (150-450) x10^3/uL MPV 9.3 (7.5-11.0) fL Gran % 96.3 H (36.0-66.0) % Immature Gran % (Auto) 0.8 H (0.00-0.4) % Nucleat RBC Rel Count 0.0 (0.00-0.1) % Eos # (Auto) 0.02 (0-0.5) x10^3/uL Immature Gran # (Auto) 0.14 H (0.00-0.03) x10^3u/L Absolute Lymphs (auto) 0.21 L (1.0-4.6) x10^3/uL Absolute Monos (auto) 0.26 (0.0-1.3) x10^3/uL Absolute Nucleated RBC 0.00 (0.00-0.01) x10^3u/L Lymphocytes % 1.2 L (24.0-44.0) % Monocytes % 1.5 (0.0-12.0) % Eosinophils % 0.1 (0.00-5.0) % Basophils % 0.1 (0.0-0.4) % Absolute Granulocytes 17.10 H (1.4-6.9) x10^3/uL Basophils # 0.02 (0-0.4) x10^3/uL Puncture Site rr Hayden Test yes Sodium 135 (135-145) mmol/L Potassium 4.6 (3.5-5.1) mmol/L Chloride 99 (98-107) mmol/L Carbon Dioxide 27 (22-30) mmol/L Anion Gap 14.1 (5-15) MEQ/L BUN 39 H (9-20) mg/dL Creatinine 0.87 (0.66-1.25) mg/dL Estimated GFR 90.0 ML/MIN Glucose 160 H (74-106) mg/dL Calcium 9.0 (8.4-10.2) mg/dL Total Bilirubin 0.20 (0.2-1.3) mg/dL AST 31 (17-59) U/L ALT 23 (0-50) U/L Alkaline Phosphatase 74 (38-126) U/L Serum Total Protein 6.3 (6.3-8.2) g/dL Albumin 3.4 L (3.5-5.0) g/dL Urine Color (Yellow) Urine Appearance (Clear) Urine pH (4.6-8.0) Ur Specific [place] (1.005-1.030) Urine Protein (Negative) Urine Glucose (UA) (Negative) mg/dL Urine Ketones (Negative) Urine Blood (Negative) Urine Nitrite (Negative) Urine Bilirubin (Negative) Urine Urobilinogen (0.2) mg/dL Ur Leukocyte Esterase (Negative) U Hyaline Cast (Auto) (0-2) /LPF Urine Microscopic RBC (0-5) /HPF Urine Microscopic WBC (0-5) /HPF Ur Epithelial Cells (None Seen) /HPF Urine Bacteria (None Seen) /HPF Urine Culture Reflexed (NO) Slides for Path Review YES 02/12/24 Range/Units 09:05 WBC (4.0-10.5) x10^3/uL RBC (4.1-5.6) x10^6/uL Hgb (12.5-18.0) g/dL Hct (42-50) % MCV (78-100) fL MCH (26-32) pg MCHC (32-36) g/dL RDW (11.5-14.0) % Plt Count (150-450) x10^3/uL MPV (7.5-11.0) fL Gran % (36.0-66.0) % Immature Gran % (Auto) (0.00-0.4) % Nucleat RBC Rel Count (0.00-0.1) % Eos # (Auto) (0-0.5) x10^3/uL Immature Gran # (Auto) (0.00-0.03) x10^3u/L Absolute Lymphs (auto) (1.0-4.6) x10^3/uL Absolute Monos (auto) (0.0-1.3) x10^3/uL Absolute Nucleated RBC (0.00-0.01) x10^3u/L Lymphocytes % (24.0-44.0) % Monocytes % (0.0-12.0) % Eosinophils % (0.00-5.0) % Basophils % (0.0-0.4) % Absolute Granulocytes (1.4-6.9) x10^3/uL Basophils # (0-0.4) x10^3/uL Puncture Site Hayden Test Sodium (135-145) mmol/L Potassium (3.5-5.1) mmol/L Chloride (98-107) mmol/L Carbon Dioxide (22-30) mmol/L Anion Gap (5-15) MEQ/L BUN (9-20) mg/dL Creatinine (0.66-1.25) mg/dL Estimated GFR ML/MIN Glucose (74-106) mg/dL Calcium (8.4-10.2) mg/dL Total Bilirubin (0.2-1.3) mg/dL AST (17-59) U/L ALT (0-50) U/L Alkaline Phosphatase (38-126) U/L Serum Total Protein (6.3-8.2) g/dL Albumin (3.5-5.0) g/dL Urine Color Yellow (Yellow) Urine Appearance Clear (Clear) Urine pH 5.5 (4.6-8.0) Ur Specific [place] 1.015 (1.005-1.030) Urine Protein Negative (Negative) Urine Glucose (UA) Negative (Negative) mg/dL Urine Ketones Negative (Negative) Urine Blood Negative (Negative) Urine Nitrite Negative (Negative) Urine Bilirubin Negative (Negative) Urine Urobilinogen 0.2 (0.2) mg/dL Ur Leukocyte Esterase Negative (Negative) U Hyaline Cast (Auto) NONE SEEN (0-2) /LPF Urine Microscopic RBC 0-2 (0-5) /HPF Urine Microscopic WBC 0-2 (0-5) /HPF Ur Epithelial Cells None Seen (None Seen) /HPF Urine Bacteria None Seen (None Seen) /HPF Urine Culture Reflexed NO (NO) Slides for Path Review Radiology Exams: Radiology Procedures Category Date Time Status CHEST 1 VIEW (PORTABLE) Routine Exams 02/13/24 08:00 Ordered CHEST 1 VIEW (PORTABLE) Stat Exams 02/10/24 19:40 Completed <NIKKI CORDERO - Last Filed: 02/12/24 18:08> Assessment/Plan (1) Hypoxia Current Visit: Yes Status: Acute Assessment & Plan: Acute respiratory failure with hypoxia: On 4Ls NC O2. COPD and CHF exacerbation. Treating both, monitor O2 sat, wean off O2 when able. 02/11: -weaned to 3L, most likely will qualify for home oxygen on discharge - continue to wean as tolerated Code(s): R09.02 - HYPOXEMIA (2) COPD exacerbation Current Visit: Yes Status: Acute Assessment & Plan: Solu-medrol 80mg IV q8, rocephin/azithromycin, updrafts prn. D-Dimer elevated, but refused CTA. already on Eliquis. Sputum and blood cultures ordered He quit smoking Aug 202002/11: -D/C IV steroids, will start prednisone -continue IV abx for superimposed pneumonia Code(s): J44.1 - CHRONIC OBSTRUCTIVE PULMONARY DISEASE W (ACUTE) EXACERBATION (3) CHF exacerbation Current Visit: Yes Status: Acute Assessment & Plan: Pleural effusion seen on CXR. BNP 2300. Lasix 20mg IV BID, and monitor BNP and clinical progress. Cr is normal. BUN 20s. 02/12/24 -Pt is unaware CHF diagnosis plan for ECHO tomorrow Code(s): I50.9 - HEART FAILURE, UNSPECIFIED (4) Hyperkalemia Current Visit: Yes Status: Acute Assessment & Plan: K is mildly elevated at 5.3. Holding spironolactone. Lasix should help lower K. Repeat lab in AM 02/11: -Resolved Code(s): E87.5 - HYPERKALEMIA (5) Leukocytosis Current Visit: Yes Status: Acute Assessment & Plan: WBC 13.5. No fever. Productive cough. Treating with Rocephin/Azithromycin for possible CAP. Flu and covid negative 02/11: -leukocytosis in the setting of pneumonia, WBC is trending up, most likely secondary to steroids Code(s): D72.829 - ELEVATED WHITE BLOOD CELL COUNT, UNSPECIFIED (6) Atrial fibrillation Current Visit: Yes Status: Acute Assessment & Plan: HR is < 120, he is on Eliquis 02/11: -Patient started on metoprolol 12.5mg bid for elevated HR which is now stable (7) Pneumonia -CXR showing bibasilar infiltrates and small left pleural effusion, Rocephin/azithromycin initiated, will continue -Consider CT chest if no improvement -sputum and blood cultures pending Code(s): I48.91 - UNSPECIFIED ATRIAL FIBRILLATION (8) AMS -U/A unremarkable -Has h/o of previous hallucinations and night time delirium per pt, may have some dementia -Now at baseline mentation -Consider CT head w/o contrast if worsening Code(s): R09.02 - HYPOXEMIA (2) COPD exacerbation Current Visit: Yes Status: Acute Code(s): J44.1 - CHRONIC OBSTRUCTIVE PULMONARY DISEASE W (ACUTE) EXACERBATION (3) Atrial fibrillation Current Visit: Yes Status: Acute Code(s): I48.91 - UNSPECIFIED ATRIAL FIBRILLATION (4) CHF exacerbation Current Visit: Yes Status: Acute Code(s): I50.9 - HEART FAILURE, UNSPECIFIED (5) Hyperkalemia Current Visit: Yes Status: Acute Code(s): E87.5 - HYPERKALEMIA (6) Leukocytosis Current Visit: Yes Status: Acute Code(s): D72.829 - ELEVATED WHITE BLOOD CELL COUNT, UNSPECIFIED <SANTHOSH ALBA - Last Filed: 02/12/24 11:12> MAGDI Encounter - MAGDI Encounter Attestation MAGDI Encounter Attestation: "LORENA Boyer andkenyaiscussed pertinent aspects of their care with Santhosh Alba and agree with the history, physical exam (any modifications based on my personal exam will be noted below), assessment, and plan as outlined in original note. Please see immediately below for my summary of findings and additional assessment and plan along with any meaningful corrections/explanations to the Subjective/Objective portions of the MAGDI note will be noted." My portion of the encounter took place via telemedicine. -COPD, CHF, pneumonia. Still requiring 3L nasal oxygen. Had an episode of confusion in the morning but was alert, oriented and appropriate at the time of my exam later. Stop IV steroids as they may be causing confusion/delirium. Continue IV antibiotics and IV diuresis. <NIKKI CORDERO - Last Filed: 02/12/24 18:08>
[2024-02-12 09:13] LABS: Appearance Clear (Clear); Bacteria None Seen /HPF (None Seen); Bilirubin Negative (Negative); Blood Negative (Negative); Epithelial Cells None Seen /HPF (None Seen); Glucose, Urine Negative (Negative); Hyaline Casts NONE SEEN /LPF (0-2); Ketones Negative (Negative); Leukocyte Esterase Negative (Negative); Nitrite Negative (Negative); Ph 5.5 (4.6-8.0); Protein,Urine Dip Negative (Negative); RBC 0-2 /HPF (0-5); Specific Gravity 1.015 (1.005-1.030); Urobilinogen 0.2 mg/dL (0.2); WBC 0-2 /HPF (0-5)
[2024-02-12 09:34] LABS: ADD URINE CULTURE? NO (NO)
[2024-02-12 09:40] LABS: ABG SITE rr; ALLEN TEST OK? yes
[2024-02-12] MEDS: NORCO 5/325 MG PO PRN (10:15)
[2024-02-13 05:14] LABS: Absolute Neutrophil Ct (ANC) 15.54 x10^3/uL (1.4-6.9); BASOPHIL % 0.1 % (0.0-0.4); Basophil (Absolute #) 0.01 x10^3/uL (0-0.4); Eosinophil (Absolute #) 0 x10^3/uL (0-0.5); Hemoglobin 11.2 g/dL (12.5-18.0); IMMATURE GRAN # 0.08 x10^3u/L (0.00-0.03); IMMATURE GRAN % 0.5 % (0.00-0.4); Lymphocyte (Absolute #) 0.45 x10^3/uL (1.0-4.6); Lymphocytes % 2.7 % (24.0-44.0); Mean Cell Volume 91.1 fL (78-100); Mean Corpuscular Hemoglobin 27.6 pg (26-32); Mean Corpuscular Hgb Concent. 30.3 g/dL (32-36); Mean Platelet Volume 9.3 fL (7.5-11.0); Monocyte (Absolute #) 0.68 x10^3/uL (0.0-1.3); Monocytes % 4.1 % (0.0-12.0); Neutrophil % 92.6 % (36.0-66.0); Platelet Count 380 x10^3/uL (150-450); Red Blood Count 4.06 x10^6/uL (4.1-5.6); Red Cell Distribution Width 18.7 % (11.5-14.0); White Blood Count 16.8 x10^3/uL (4.0-10.5)
[2024-02-13 05:33] LABS: ALBUMIN 3.5 g/dL (3.5-5.0); ANION GAP 12.4 MEQ/L (5-15); BILIRUBIN,TOTAL 0.2 mg/dL (0.2-1.3); Calcium 9.2 mg/dL (8.4-10.2); Creatinine 1 0.87 mg/dL (0.66-1.25); Potassium 4.6 mmol/L (3.5-5.1); Total Protein 6.6 g/dL (6.3-8.2)
[2024-02-13 08:09] LABS: Slide Review 1 YES
--- NOTE | 2024-02-13 08:37 | XRAY ---
Indication: Pneumonia. Comparison: February 10, 2024 Portable chest demonstrates clearing right base infiltrate/atelectasis. Left base infiltrate/atelectasis/effusion minimally improved with mild residual. Remaining heart and upper lungs unremarkable.
[2024-02-13] MEDS ORDERED: DELTASONE 20 MG PO SCH (10:00)
[2024-02-13 11:26] VITALS: BP 129/68; PULSE 93; RESP 25; TEMP 98; O2SAT 98
--- NOTE | 2024-02-13 13:16 | PCM.DS ---
Discharge Summary Date of Admission: 02/11/24 00:03 Date of Discharge: 02/13/24 Admitting Physician: MICHAEL VIEIRA DO Primary Care Provider: AJ CHOW Allergies Allergies No Known Drug Allergies Allergy (Unverified 02/10/24 19:16) Hospital Summary - Hospital Course Hospital Course: is a 73 year old male with hx of GERD, AFib, CHF, COPD. Admitted on 02/10 with c/o SOB and productive cough that started that day. He is not normally on O2, and his O2 sat on RA was 88%, placed on 4Ls NC O2, and O2 sat has since improved. Cough was productive with yellow sputum. In ER, CXR showed effusions. BNP 2300. Concern for both COPD exacerbation, PNA and CHF. He is on Eliquis already for AFib. D-Dimer elevated but pt refused to go to CT due to his back pain. Patient is worried about the cost of imaging and reluctant to have done. Back pain, is a chronic issue. There was a concern that steroids were contributing to delirium so they were stopped 2 days ago. Therefore will not be continuing OP. Awaiting echo results. If Ok may d/c. Home O2 set up. Will continue antibiotics OP. He will need to f/u with cardiology and PCP OP. - Vitals & Intake/Output Vital Signs: Vital Signs Temperature 98 F 02/13/24 11:25 Pulse Rate 93 H 02/13/24 11:25 Respiratory Rate 25 H 02/13/24 11:25 Blood Pressure 129/68 02/13/24 11:25 O2 Sat by Pulse Oximetry 98 02/13/24 11:25 Intake & Output: Intake & Output 02/11/24 02/12/24 02/13/24 02/14/24 11:59 11:59 11:59 11:59 Intake Total 739 1993 1740 540 Output Total 400 900 Balance 339 1093 1740 540 Weight 68 kg 63 kg 63.2 kg - Lab Result Diagrams: 02/13/24 04:35 02/13/24 04:35 Lab Results-Last 24 Hrs: Lab Results-Last 24 Hours 02/13/24 02/13/24 Range/Units 04:35 04:35 WBC 16.8 H (4.0-10.5) x10^3/uL RBC 4.06 L (4.1-5.6) x10^6/uL Hgb 11.2 L (12.5-18.0) g/dL Hct 37.0 L (42-50) % MCV 91.1 (78-100) fL MCH 27.6 (26-32) pg MCHC 30.3 L (32-36) g/dL RDW 18.7 H (11.5-14.0) % Plt Count 380 (150-450) x10^3/uL MPV 9.3 (7.5-11.0) fL Gran % 92.6 H (36.0-66.0) % Immature Gran % (Auto) 0.5 H (0.00-0.4) % Nucleat RBC Rel Count 0.0 (0.00-0.1) % Eos # (Auto) 0 (0-0.5) x10^3/uL Immature Gran # (Auto) 0.08 H (0.00-0.03) x10^3u/L Absolute Lymphs (auto) 0.45 L (1.0-4.6) x10^3/uL Absolute Monos (auto) 0.68 (0.0-1.3) x10^3/uL Absolute Nucleated RBC 0.00 (0.00-0.01) x10^3u/L Lymphocytes % 2.7 L (24.0-44.0) % Monocytes % 4.1 (0.0-12.0) % Eosinophils % 0.0 (0.00-5.0) % Basophils % 0.1 (0.0-0.4) % Absolute Granulocytes 15.54 H (1.4-6.9) x10^3/uL Basophils # 0.01 (0-0.4) x10^3/uL Sodium 138 (135-145) mmol/L Potassium 4.6 (3.5-5.1) mmol/L Chloride 98 (98-107) mmol/L Carbon Dioxide 32 H (22-30) mmol/L Anion Gap 12.4 (5-15) MEQ/L BUN 39 H (9-20) mg/dL Creatinine 0.87 (0.66-1.25) mg/dL Estimated GFR 90.0 ML/MIN Glucose 112 H (74-106) mg/dL Calcium 9.2 (8.4-10.2) mg/dL Total Bilirubin 0.20 (0.2-1.3) mg/dL AST 42 (17-59) U/L ALT 36 (0-50) U/L Alkaline Phosphatase 71 (38-126) U/L Serum Total Protein 6.6 (6.3-8.2) g/dL Albumin 3.5 (3.5-5.0) g/dL Slides for Path Review YES Micro Results-Entire Visit: Microbiology 02/11/24 15:15 Gram Stain - Final Sputum - Expectorant 02/10/24 20:08 Blood Culture - Preliminary Blood 02/10/24 20:13 Blood Culture - Preliminary Blood - Radiology Exams Ordered Rad Exams-Entire Visit: Radiology Procedures Category Date Time Status CHEST 1 VIEW (PORTABLE) Routine Exams 02/13/24 08:00 Completed ECHO W/2D AND DOPPLER [US] Routine Exams 02/13/24 08:47 Taken - Procedures and Test Procedures and Tests throughout Hospitalization: Therapy Orders & Screens 02/11/24 00:05 Oxygen Nasal Cannula 2 lpm Comment: 02/11/24 00:12 EKG REPEAT IN AM Comment: Oxygen Nasal Cannula 2 lpm Comment: Respiratory Therapy Consult ONCE Comment: Reason For Exam: 02/11/24 01:43 Respiratory Therapy Assessment DAILY Comment: Diagnosis: SOB 02/11/24 07:25 EKG STAT Comment: Diagnosis: SOB EKG Reason: Post Cardiac History 02/13/24 09:02 Qualify for Home Oxygen TODAY Comment: Diagnosis: SOB Discharge Exam General Appearance: no apparent distress, alert Neurologic Exam: alert, oriented x 3, cooperative, normal mood/affect, nml cerebellar function, sensation nml, No motor deficits Eye Exam: PERRL, EOMI, eyes nml inspection Ears, Nose, Throat Exam: normal ENT inspection, pharynx normal, moist mucous membranes Neck Exam: normal inspection, non-tender, supple, full range of motion Respiratory Exam: normal breath sounds, lungs clear, No respiratory distress Cardiovascular Exam: regular rate/rhythm, normal heart sounds Gastrointestinal/Abdomen Exam: soft, No tenderness, No mass Male Genitalia Exam: deferred Rectal Exam: deferred Back Exam: normal inspection, normal range of motion, No CVA tenderness, No vertebral tenderness Extremity Exam: normal inspection, normal range of motion Skin Exam: normal color, warm, dry Final Diagnosis/Problem List - Final Discharge Diagnosis/Problem (1) Pneumonia Current Visit: Yes Status: Acute Assessment & Plan: - CXR 02/12 Portable chest demonstrates clearing right base infiltrate/atelectasis. Left base infiltrate/atelectasis/effusion minimally improved with mild residual. Remaining heart and upper lungs unremarkable. - 2LNC 94% - will d/c with home O2 set up by case management - steroids stopped d/t delirium - D/C with antibiotics - BCx2 negative - Sputum culture pending- will continue to follow OP Code(s): J18.9 - PNEUMONIA, UNSPECIFIED ORGANISM (2) AMS (altered mental status) Current Visit: Yes Status: Acute Assessment & Plan: - resolved - only with steroids and med stopped Code(s): R41.82 - ALTERED MENTAL STATUS, UNSPECIFIED (3) Atrial fibrillation Current Visit: Yes Status: Acute Assessment & Plan: -Patient started on metoprolol 12.5mg bid for elevated HR which is now stable - Echo pending- fingerprint technician states she was unable to get a good reading and did not put in estimated EF%- Will have pt f/u with cardiology Op for results. - Will need to f/u with cardiology OP - Continue Eliquis Code(s): I48.91 - UNSPECIFIED ATRIAL FIBRILLATION (4) CHF exacerbation Current Visit: Yes Status: Acute Assessment & Plan: -Pt is unaware CHF diagnosis - echo pending - sxs improved - BNP on admission 0 Code(s): I50.9 - HEART FAILURE, UNSPECIFIED (5) COPD exacerbation Current Visit: Yes Status: Acute Assessment & Plan: - antibiotocs, advair, mucinex, ventolin - 2lNC - Continue antibiotics OP - unable to take steroids d/t side effects. Code(s): J44.1 - CHRONIC OBSTRUCTIVE PULMONARY DISEASE W (ACUTE) EXACERBATION (6) Hyperkalemia Current Visit: Yes Status: Acute Assessment & Plan: - resolved Code(s): E87.5 - HYPERKALEMIA (7) Hypoxia Current Visit: Yes Status: Acute Assessment & Plan: - 2:2 pneumonia/ COPD - 2lNC 94% - will d/c with home o2 Code(s): R09.02 - HYPOXEMIA (8) Leukocytosis Current Visit: Yes Status: Acute Assessment & Plan: - WBC improved 16.8 - 2:2 pneumonia/ COPD exacerbation - may also be r/t steroids - See pneumonia plan Code(s): D72.829 - ELEVATED WHITE BLOOD CELL COUNT, UNSPECIFIED (9) Elevated d-dimer Current Visit: Yes Status: Acute Assessment & Plan: - Pt refused CT - D-Dimer 0.64 - already on Eliquis BID - denies CP, SOB Code(s): R79.89 - OTHER SPECIFIED ABNORMAL FINDINGS OF BLOOD CHEMISTRY - Discharge Discharge Date: 02/13/24 Disposition: Home, Self-Care Condition: Fair Prescriptions: New Metoprolol Tartrate 25 mg [Lopressor 25MG Tab] 12.5 mg PO BID 30 Days #60 tablet Doxycycline Hyclate 100 mg [Vibramycin 100 MG] 100 mg PO BID 5 Days #10 tab Continue Cimetidine [Acid Mold Tooler] 400 mg PO DAILY Budesonide/Formoterol Fumarate [Budesonide-Formoterol 160-4.5] 2 puffs IH BID Rosuvastatin Calcium 40 mg PO DAILY Methotrexate Sodium 2.5 mg [Trexall 2.5 mg] 2.5 mg PO DAILY Spironolactone [Aldactone] 25 mg PO DAILY Apixaban [Eliquis] 5 mg PO BID Albuterol Sulfate [Albuterol Sulfate Hfa] 2 puffs IH Q8H PRN PRN PRN Reason: Shortness Of Breath Vitamin E Mixed [Vitamin E] 1,000 unit PO DAILY Ferrous Sulfate 325 mg [Feosol 325 mg] 1 tab PO DAILY Cholecalciferol (Vitamin D3) [Vitamin D3] 25 mcg PO BID Ascorbic Acid [Vitamin C] 1,000 mg PO DAILY Acetaminophen [Tylenol] 500 mg PO DAILY Instructions: Oxygen Therapy, Adult (DC) Additional Instructions: YOU NEED TO WEAR 2L/NC AT ALL TIMES AT HOME. CALL [facility] WHEN YOU LEAVE [facility] AT [phone] SO THEY CAN KNOW TO COME DELIVER YOUR HOME CONCENTRATOR. IF IT IS AFTER HOURS, FOLLOW THE AFTER HOURS PHONE PROMPTS OUR COMMUNITY CARE NURSES WILL REACH OUT TO YOU AFTER DC TO SEE IF YOU ARE INTERESTED IN SIGNING UP FOR CHRONIC CARE MANAGEMENT WHERE THEY CAN ASSIST YOU IN MANAGING YOUR HEALTH. IF YOU WANT TO CONTACT THEM, YOU CAN AT [phone] Follow up with: AJ CHOW [Primary Care Provider] - 02/17/24 10:15 am ARNAUD TATUM MD [CONSULTING PHYSICIAN] - 05/29/24 9:45 am
[2024-02-17] MEDS ORDERED: TREXALL 2.5 MG PO SCH (08:44)
--- NOTE | 2024-02-23 07:45 | ECHO ---
DATE OF PROCEDURE: 02/13/2024 CLINICAL INFORMATION: Atrial fibrillation. The M-mode 2D, and Doppler echocardiogram including color flow Doppler shows the left ventricle is normal in size. The wall thickness is normal. There is a mild to moderate decrease in left ventricular systolic function. The ejection fraction is estimated to be 35 to 40%. The right ventricle is dilated. The left atrium is borderline dilated. The interatrial septum is intact. The right atrium is normal. The aortic valve opens well. There is mitral valve leaflet thickening associated with mild mitral regurgitation. There is mild tricuspid regurgitation. The right ventricular systolic pressure is calculated to be 41 mm of Mercury. The pulmonic valve is not well visualized. The aortic root is normal. There is no pericardial effusion present. IMPRESSION: 1) MILD TO MODERATE DECREASE IN LEFT VENTRICULAR SYSTOLIC FUNCTION. 2) DILATED RIGHT VENTRICLE. 3) MILD LEFT ATRIAL DILATATION. 4) MILD MITRAL REGURGITATION. 5) MILD TRICUSPID REGURGITATION. 6) MODERATE PULMONARY HYPERTENSION.
== END 2024-02-13 15:35 | disposition home or self-care (01) ==
LOC: ED 18:57 → MED SURG 02-11 00:03
PROVIDERS: ADMIT Internal Medicine; ATTEND Internal Medicine
DX: J18.9 Pneumonia, unspecified organism (principal); R41.82 Altered mental status, unspecified; I48.91 Unspecified atrial fibrillation; I50.9 Heart failure, unspecified; J44.1 Chronic obstructive pulmonary disease with (acute) exacerbation; E87.5 Hyperkalemia; R09.02 Hypoxemia; D72.829 Elevated white blood cell count, unspecified; R79.89 Other specified abnormal findings of blood chemistry; I51.9 Heart disease, unspecified; Z79.01 Long term (current) use of anticoagulants; Z79.899 Other long term (current) drug therapy; Z20.828 Contact with and (suspected) exposure to other viral communicable diseases
CPT/HCPCS: 0241U; 36000; 36415; 36600; 71045; 80053; 81001; 82375; 82803; 83605; 83735; 83880; 84484; 85025; 85027; 85379; 87040; 87070; 93005; 93268; 93306; 94640; 94760; 94762; 96374; 96375; 96376; 99285; 99291; G0378; Q3014; J0456; J0696; J1940; J2270; J2405; J2920; J2930; A9270-GY